=== PATIENT | male | born 1960 | race Caucasian/White ===

== ENCOUNTER 2018-05-12 17:32 | Emergency (ER) | payer OTHER ==
[~2018-05-12] VITALS: Ht 175.3 cm; Wt 97.5 kg
[2018-05-12] MEDS ORDERED: ATORVASTATIN TAB 20MG (17:46)
[2018-05-12] MEDS ORDERED: GABAPENTIN 100 MG (17:46)
[2018-05-12] MEDS ORDERED: FLUTICASONE SPR 50MCG (17:46)
[2018-05-12] MEDS ORDERED: EZETIMIBE 10 MG (17:46)
[2018-05-12] MEDS ORDERED: ESCITALOPRAM TAB 10MG (17:46)
--- NOTE | 2018-05-12 17:50 | NUR ---
at bedside to examine patient.
[2018-05-12] MEDS ORDERED: KETOROLAC TROMETHAMINE 30 MG INJ IVP ONE (18:00)
[2018-05-12] MEDS ORDERED: MORPHINE SULFATE 4 MG/1 ML DISP.SYRIN IV ONE (18:00)
[2018-05-12] MEDS ORDERED: ONDANSETRON 4 MG/2 ML VIAL IV ONE (18:00)
[2018-05-12] MEDS ORDERED: IV NORMAL SALINE 1000 ML BAG IV ONE (18:00)
[2018-05-12] MEDS ORDERED: ONDANSETRON 4 MG/2 ML VIAL ONE (18:08)
[2018-05-12] MEDS ORDERED: MORPHINE SULFATE 4 MG/1 ML DISP.SYRIN ONE (18:08)
[2018-05-12] MEDS ORDERED: KETOROLAC TROMETHAMINE 30 MG INJ ONE (18:08)
--- NOTE | 2018-05-12 19:07 | NUR ---
bedside report given to incoming shift.
--- NOTE | 2018-05-12 19:10 | NUR ---
REPORT TAKEN FROM DAY SHIFT. ASSUMING OT CARE AT THIS TIME.
--- NOTE | 2018-05-12 19:21 | NUR ---
DR MOSQUEDA SPEAKING TO DR GARNER.
--- NOTE | 2018-05-12 21:19 | NUR ---
Patient discharged to home in stable conditon. Written and verbal after care instructions given. Patient verbalizes understanding of instructions. IV removed, catheter intact. Pressure applied, no bleeding noted at site.
[2018-05-12 21:20] VITALS: BP 118/64
== END 2018-05-12 21:21 | disposition home or self-care (01) ==
LOC: ER 17:36
DX: N20.0 Calculus of kidney (principal); E78.5 Hyperlipidemia, unspecified; Z88.8 Allergy status to other drugs, medicaments and biological substances; Z79.51 Long term (current) use of inhaled steroids; Z79.899 Other long term (current) drug therapy
CPT/HCPCS: 96374; 96375; 99284; A4663; J1885; J2270; J2405; J7030